=== PATIENT | female | born 1955 | race Caucasian/White ===

== ENCOUNTER → 2017-09-19 | Outpatient (CLI) | payer BC | LOC: MC.RAD 11:18 | DX: Z12.31 Encounter for screening mammogram for malignant neoplasm of breast (principal) ==

== ENCOUNTER → 2020-11-13 | Outpatient (CLI) | payer BC | LOC: MC.RAD 13:58 | DX: Z12.31 Encounter for screening mammogram for malignant neoplasm of breast (principal) ==

== ENCOUNTER 2021-09-18 07:52 | Day surgery (SDC) | payer BC ==
[~2021-09-18] VITALS: Ht 167.6 cm; Wt 131.4 kg
[2021-09-18 08:18] VITALS: BP 105/107; PULSE 84; TEMP 98
[2021-09-18] MEDS ORDERED: COZAAR100 MG PO (08:21)
[2021-09-18] MEDS ORDERED: DESYREL 100MG100 MG PO (08:22)
[2021-09-18] MEDS ORDERED: WELLBUTRIN XL150 MG PO (08:22)
[2021-09-18] MEDS ORDERED: ATARAX 25MG25 MG/TAB PO (08:23)
[2021-09-18] MEDS ORDERED: ADVIL200 MG PO (08:24)
[2021-09-18 10:10] VITALS: BP 148/89; PULSE 74; TEMP 97.1
[2021-09-18 10:25] VITALS: BP 143/85; PULSE 75
[2021-09-18 10:40] VITALS: BP 135/74; PULSE 80
== END 2021-09-18 11:10 | disposition home or self-care (01) ==
LOC: SDCO 07:52
DX: Z12.11 Encounter for screening for malignant neoplasm of colon (principal); D12.2 Benign neoplasm of ascending colon; D12.3 Benign neoplasm of transverse colon; K57.30 Diverticulosis of large intestine without perforation or abscess without bleeding; K64.0 First degree hemorrhoids; E66.9 Obesity, unspecified
CPT/HCPCS: J2704; J7030